=== PATIENT | male | born 1985 | race African-American/Black ===

== ENCOUNTER 2017-12-15 09:27 | Emergency (ER) | payer SELFPAY ==
[2017-12-15] MEDS ORDERED: NORMAL SALINE 1000 ML 1,000 ML IV ONE (09:50)
[2017-12-15] MEDS ORDERED: LORAZEPAM INJ 2 MG/1 ML VIAL IV ONE (09:50)
[2017-12-15] MEDS ORDERED: PANTOPRAZOLE SODIUM 40 MG VIAL IV ONE (09:51)
--- NOTE | 2017-12-15 09:53 | ER Document Report ---
ED Medical Screen (RME) - General Chief Complaint: Anxiety Stated Complaint: CHEST PAIN Time Seen by Provider: 12/15/17 09:39 Notes: Patient is a 32-year-old male that presents to the emergency department for chief complaint of chest pain and anxiety. 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 He describes the pain as a sharp constant pain in his chest, he is still currently having. ROS: Unless otherwise stated in this report the patient's positive and negative responses for review of systems for constitutional, eyes, ENT, cardiovascular, respiratory, gastrointestinal, neurological, genitourinary, musculoskeletal, and integumentary systems and related systems to the presenting problem are either as stated in the HPI or were not pertinent or were negative for the symptoms and/or complaints related to the presenting medical problem. PHYSICAL EXAMINATION: Vital signs reviewed. GENERAL: Well-appearing, well-nourished and in no acute distress. HEAD: Atraumatic, normocephalic. EYES: Pupils equal round extraocular movements intact, conjunctiva are normal. ENT: Nares patent NECK: Normal range of motion CV: Heart rate tachycardic, regular rhythm LUNGS: No respiratory distress Musculoskeletal: Normal range of motion NEUROLOGICAL: Normal speech PSYCH: Normal mood, normal affect. MDM: Patient seen and examined for rapid initial assessment. Vital signs reviewed. EKG was reviewed, no STEMI, normal sinus rhythm . A comprehensive ED assessment and evaluation of the patient, analysis of test results and completion of the medical decision making process will be conducted by additional ED providers. *Note is created using voice recognition software and may contain spelling, syntax or grammatical errors. Past Medical History - Social History Chew tobacco use (# tins/day): No Frequency of alcohol use: Heavy Drug Abuse: Cocaine, Marijuana Renal/ Medical History: Denies: Hx Peritoneal Dialysis Psychiatric Medical History: Reports: Hx Depression Physical Exam - Vital signs Vitals: Temp Pulse Resp BP Pulse Ox 98.4 F 103 H 18 113/69 98 12/15/17 09:35 12/15/17 09:35 12/15/17 09:35 12/15/17 09:35 12/15/17 09:35 Course - Vital Signs Vital signs: Temp Pulse Resp BP Pulse Ox 98.4 F 103 H 18 113/69 98 12/15/17 09:35 12/15/17 09:35 12/15/17 09:35 12/15/17 09:35 12/15/17 09:35 Doctor's Discharge - Discharge Instructions: Anxiety ([facility])
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
[2017-12-15 10:46] LABS: ABSOLUTE BASOPHILS # (AUTO) 0.1 10^3/uL (0.0-0.2); ABSOLUTE EOSINOPHILS # (AUTO) 0.2 10^3/uL (0.0-0.6); ABSOLUTE LYMPHOCYTES (AUTO) 1.9 10^3/uL (0.5-4.7); ABSOLUTE MONOCYTES (AUTO) 0.7 10^3/uL (0.1-1.4); ABSOLUTE NEUT (AUTO) 4.8 10^3/uL (1.7-8.2); EOSINOPHILS % (AUTO) 3.2 % (0-6); HEMATOCRIT 44.6 % (37.9-51.0); HEMOGLOBIN 15.2 g/dL (13.5-17.0); LYMPHOCYTES % (AUTO) 24.4 % (13-45); MEAN CORPUSCULAR HEMOGLOBIN 33.5 pg (27.0-33.4); MEAN CORPUSCULAR VOLUME 99 fl (80-97); MONOCYTES % (AUTO) 9.5 % (3-13); PLATELET COUNT 345 10^3/uL (150-450); RED BLOOD COUNT 4.52 10^6/uL (4.35-5.55); RED CELL DISTRIBUTION WIDTH 13.4 % (11.5-14.0); SEGMENTED NEUTROPHILS % (AUTO) 61.9 % (42-78); TOTAL CELLS COUNTED % (AUTO) 100 %; WHITE BLOOD COUNT 7.7 10^3/uL (4.0-10.5)
[2017-12-15 11:05] LABS: ALANINE AMINOTRANSFERASE 20 U/L (21-72); ALBUMIN 4.7 g/dL (3.5-5.0); ALKALINE PHOSPHATASE 70 U/L (38-126); ANION GAP 12 (5-19); ASPARTATE AMINO TRANSFERASE 29 U/L (17-59); BILIRUBIN,DIRECT 0.5 mg/dL (0.0-0.4); BILIRUBIN,TOTAL 1.7 mg/dL (0.2-1.3); BLOOD UREA NITROGEN 10 mg/dL (7-20); CALCIUM 10.2 mg/dL (8.4-10.2); CARBON DIOXIDE 29 mmol/L (22-30); CHLORIDE 100 mmol/L (98-107); CREATINE KINASE 317 U/L (55-170); GLUCOSE 126 mg/dL (75-110); POTASSIUM 3.5 mmol/L (3.6-5.0); SODIUM 141.2 mmol/L (137-145)
[2017-12-15 11:08] LABS: URINE AMPHETAMINES SCREEN NEGATIVE; URINE BARBITURATES SCREEN NEGATIVE; URINE BENZODIAZEPINES SCREEN NEGATIVE; URINE COCAINE SCREEN UNCONFIRMED POSITIVE; URINE MARIJUANA (THC) SCREEN UNCONFIRMED POSITIVE; URINE METHADONE SCREEN NEGATIVE; URINE PHENCYCLIDINE SCREEN NEGATIVE
--- NOTE | 2017-12-15 11:08 | RADIOLOGY REPORT (SQ) ---
EXAM DESCRIPTION: CHEST SINGLE VIEW COMPLETED DATE/TIME: 12/15/2017 10:56 am REASON FOR STUDY: chest pain COMPARISON: None. EXAM PARAMETERS: NUMBER OF VIEWS: One view. TECHNIQUE: Single frontal radiographic view of the chest acquired. RADIATION DOSE: NA LIMITATIONS: None. FINDINGS: LUNGS AND PLEURA: No opacities, masses or pneumothorax. No pleural effusion. MEDIASTINUM AND HILAR STRUCTURES: No masses. Contour normal. HEART AND VASCULAR STRUCTURES: Heart normal in size. Normal vasculature. BONES: No acute findings. HARDWARE: None in the chest. OTHER: No other significant finding. IMPRESSION: NO ACUTE RADIOGRAPHIC FINDING IN THE CHEST. TECHNICAL DOCUMENTATION: JOB ID: [id number] [employer]- All Rights Reserved Reading location - IP/workstation name: [email or web address]
[2017-12-15 15:39] VITALS: BP 115/58
--- NOTE | 2017-12-15 23:22 | EKG REPORT ---
SEVERITY:- NORMAL ECG - SINUS RHYTHM : Confirmed by: Rahul Henderson 15-Dec-2017 23:21:44
== END 2017-12-15 15:48 | disposition home or self-care (01) ==
LOC: ER 09:27
DX: F41.9 Anxiety disorder, unspecified (principal); R07.9 Chest pain, unspecified; F19.10 Other psychoactive substance abuse, uncomplicated; R00.2 Palpitations; F17.200 Nicotine dependence, unspecified, uncomplicated
CPT/HCPCS: 93005; 99284; 96361; 96374; 96375; 36415; 82550; 85025; 80053; 84484; 80307; 71045; 93010; J2060; S0164; J7030